=== PATIENT | male | born 1960 | race Caucasian/White ===

== ENCOUNTER 2017-08-23 01:53 | Emergency (ER) | payer SELFPAY ==
[~2017-08-23] VITALS: Ht 177.8 cm; Wt 78.0 kg
[2017-08-23 01:53] VITALS: BP 132/71; PULSE 78; RESP 16; TEMP 98.9; O2SAT 96
[~2017-08-23 01:53] MED LIST: FLAG500T PO; NAPR-576 PO
[2017-08-23] MEDS ORDERED: BACT800T5 PO (02:09)
[2017-08-23] MEDS ORDERED: LEVO50TA4 PO (02:09)
== END 2017-08-23 02:25 | disposition left against medical advice (07) ==
LOC: NED 01:53
DX: R10.9 Unspecified abdominal pain (principal); Z53.21 Procedure and treatment not carried out due to patient leaving prior to being seen by health care provider
CPT/HCPCS: 99281

== ENCOUNTER → 2017-11-19 | Day surgery (SDC) | payer OTHER ==
[~2017-11-19] MED LIST changes: +BACT800T5 PO; -FLAG500T PO; +LEVO50TA4 PO; -NAPR-576 PO; +PROPOFOL 200 MG/20 ML AMP IV ONE
== END | disposition home or self-care (01) ==
LOC: ESDC 09:14
PROVIDERS: ATTEND Internal Medicine Gastroenterology
DX: Z12.11 Encounter for screening for malignant neoplasm of colon (principal); K57.30 Diverticulosis of large intestine without perforation or abscess without bleeding; K64.8 Other hemorrhoids